=== PATIENT | male | born 1990 | race Caucasian/White ===

== ENCOUNTER 2019-10-20 09:09 | Outpatient (REF) | payer MEDICAID, SELFPAY ==
[2019-10-20 22:25] LABS: Magnesium 1.8 mg/dL (1.8-2.4); TSH (W/Ref FT4) 1.67 uIU/mL (0.36-3.74)
== END 2019-10-20 09:29 ==
LOC: NCHCN 09:09
PROVIDERS: PCP Nurse Practitioner Family; Visit Provider Nurse Practitioner Family
DX: Z86.79 Personal history of other diseases of the circulatory system (principal)
CPT/HCPCS: 83735; 84443

== ENCOUNTER 2019-10-27 10:13 | Outpatient (REF) | payer MEDICAID, SELFPAY ==
[2019-10-27 21:37] LABS: Calculated LDL 127 mg/dL; Cholesterol 192 mg/dL (<200); HDL Cholesterol 59 mg/dL (40-60); Triglyceride 32 mg/dL (<150)
[2019-10-27 21:40] LABS: Hemoglobin A1C 5.3 % (3.8-5.6)
== END 2019-10-27 10:33 ==
LOC: NCHCN 10:13
PROVIDERS: PCP Nurse Practitioner Family; Visit Provider Nurse Practitioner Family
DX: E66.9 Obesity, unspecified (principal); Z13.1 Encounter for screening for diabetes mellitus; Z13.220 Encounter for screening for lipoid disorders
CPT/HCPCS: 80061; 83036

== ENCOUNTER 2020-08-30 16:12 | Outpatient (REF) | payer MEDICAID, SELFPAY ==
[2020-09-02 14:29] LABS: Chlamydia Result Negative (Negative); GC Result Negative (Negative)
== END 2020-08-30 16:32 ==
LOC: NCHCN 16:12
PROVIDERS: PCP Nurse Practitioner Family; Visit Provider Family Medicine
DX: R39.15 Urgency of urination (principal); Z11.3 Encounter for screening for infections with a predominantly sexual mode of transmission
CPT/HCPCS: 87491; 87591

== ENCOUNTER 2020-09-06 08:38 | Outpatient (REF) | payer MEDICAID, SELFPAY ==
[2020-09-08 14:57] LABS: Chlamydia Result Negative (Negative); GC Result Negative (Negative)
== END 2020-09-06 08:58 ==
LOC: NCHCN 08:38
PROVIDERS: PCP Nurse Practitioner Family; Visit Provider Family Medicine
DX: R39.15 Urgency of urination (principal); Z11.3 Encounter for screening for infections with a predominantly sexual mode of transmission
CPT/HCPCS: 87491; 87591